=== PATIENT | female | born 1965 | race Hispanic/Latino ===

== ENCOUNTER 2017-08-14 17:31 | Inpatient (IN) | payer SELFPAY ==
[~2017-08-14] VITALS: Ht 160 cm; Wt 93.0 kg
[2017-08-14] MEDS ORDERED: ASPIRIN 81 MG CHEW TAB PO ONE (20:30)
[2017-08-14 20:35] LABS: BASOPHILS % 0.1 % (0.0-1.0); EOSINOPHILS # (AUTO) 0.3 (0.0-0.4); EOSINOPHILS % 1.9 % (0.0-6.0); LYMPHOCYTES # (AUTO) 1.4 (1.0-3.2); LYMPHOCYTES % 10.5 % (18.0-39.1); MEAN CORPUSCULAR HEMOGLOBIN 18.9 pg (28-32); MONOCYTES # (AUTO) 1.1 (0.2-0.8); MONOCYTES % 8.1 % (4.4-11.3); NEUTROPHILS # (AUTO) 10.7 (2.1-6.9); NEUTROPHILS % 78.4 % (38.7-80.0); PLATELET COUNT 265 x10e3/uL (140-360); RED BLOOD COUNT 2.27 x10e6/uL (3.6-5.1); RED CELL DISTRIBUTION WIDTH 18.9 % (11.7-14.4)
[2017-08-14 20:38] LABS: HEMOGLOBIN 4.3 g/dL (12.0-16.0)
[2017-08-14 20:39] LABS: HEMATOCRIT 15.9 % (34.2-44.1)
[2017-08-14 20:40] LABS: BILIRUBIN,URINE NEGATIVE (NEGATIVE); KETONES,URINE NEGATIVE (NEGATIVE); LEUKOCYTE ESTERASE ,URINE NEGATIVE (NEGATIVE); NITRITE,URINE NEGATIVE (NEGATIVE); PROTEIN,URINE DIPSTICK NEGATIVE (NEGATIVE); URINE UROBILINOGEN 0.2 mg/dL (0.2 - 1)
[2017-08-14 20:41] LABS: CLARITY,URINE CLEAR (CLEAR); COLOR,URINE YELLOW (YELLOW); INR 1.09; PROTHROMBIN TIME 13.3 seconds (11.9-14.5)
[2017-08-14 20:42] LABS: PARTIAL THROMBOPLASTIN TIME 26.5 seconds (23.8-35.5)
[2017-08-14] MEDS ORDERED: SODIUM CHLORIDE 0.9% 1000ML 1,000 ML IV STA (20:47)
[2017-08-14] MEDS ORDERED: PANTOPRAZOLE 40 MG 10ML VIAL IV STA (20:47)
[2017-08-14 20:53] LABS: EPITHELIAL CELLS,URINE FEW /LPF
[2017-08-14 20:54] LABS: ALBUMIN 3.5 g/dL (3.5-5.0); ANION GAP 13.7 mmol/L (8-16); CALCIUM 8.4 mg/dL (8.4-10.2); CREATININE, SERUM 1.06 mg/dL (0.57-1.11); POTASSIUM 3.7 mmol/L (3.5-5.1); WBC,URINE (MAN) 0-5 /HPF (0-5)
--- NOTE | 2017-08-14 20:59 | Diagnostic Imaging Report ---
EXAMINATION: Head CT without contrast. HISTORY:Dizziness. COMPARISON:None. TECHNIQUE: Multidetector axial images were obtained from the foramen magnum to the vertex without contrast. The images were reconstructed using brain and bone algorithms. Thin section brain images were reformatted into coronal and sagittal planes. Intravenous contrast: None IMAGE QUALITY: Acceptable. FINDINGS: Skull/scalp: No abnormality. Parenchyma: No abnormal density. No acute hemorrhage, mass or acute major vascular territorial infarct. Arteries: No density suggestive of thrombosis. Dural sinuses: No abnormal density suggestive of thrombosis. Ventricles: No hydrocephalus or displacement. Extra-axial spaces: No abnormal density. Brain volume: Normal for age. Craniocervical junction: No mass, Chiari malformation, or basilar invagination. Sella: No abnormality. Paranasal/mastoid sinuses: Mild mucosal thickening in right maxillary sinus. IMPRESSION: No intracranial abnormality. Signed by: Dr. Jessica Flores M.D. on 08/14/2017 8:56 PM
[2017-08-14] MEDS ORDERED: SODIUM CHLORIDE 0.9% 250ML 250 ML IV ONE (21:00)
[2017-08-14 21:02] LABS: CREATINE KINASE MB 0.5 ng/mL (0-5.0)
--- NOTE | 2017-08-14 21:17 | Diagnostic Imaging Report ---
EXAMINATION: CHEST SINGLE (PORTABLE) INDICATION: \S\CHEST PAIN \S\[id number] \S\2024 \S\Y COMPARISON: None FINDINGS: AP view TUBES and LINES: None. LUNGS: Lungs are well inflated. Central pulmonary venous congestion. There is no evidence of pneumonia or kacie pulmonary edema. PLEURA: No pleural effusion or pneumothorax. HEART AND MEDIASTINUM: The cardiac silhouette is enlarged. BONES AND SOFT TISSUES: No acute osseous lesion. Soft tissues are unremarkable. UPPER ABDOMEN: No free air under the diaphragm. IMPRESSION: Cardiomegaly with central pulmonary venous congestion. Signed by: DR. Rolo Sanchez MD on 08/14/2017 9:13 PM
[2017-08-14] MEDS ORDERED: NITROGLYCERIN 0.4 MG SUBL SL PRN (22:30)
--- OUTSIDE RECORDS SUMMARY | 2017-08-14 22:41 | XMS REPORT ---
Author Author [facility] Address Unknown Phone Unavailable Care Team Providers Care Stave Jointer Name Role Phone DAVE ALFONSO Unavailable Unavailable Problems This patient has no known problems. Allergies, Adverse Reactions, Alerts This patient has no known allergies or adverse reactions. Medications This patient has no known medications. Results Test Description Test Time Test Comments Text Results Atomic Results Result Comments CT BRAIN WO [place] [address] Patient Name: YVONNE SPENCER MR #: [id number] : 1965 Age/Sex: 52/F Req #: [id number] Adm Physician: Ordered by: DAVE ALFONSO MD Report #: [id number] Location: ER Room/Bed: Procedure: [id number] CT/CT BRAIN WO Exam Date: 08/14/17 Exam Time: 2033 REPORT STATUS: Signed EXAMINATION: Head CT without contrast. HISTORY:Dizziness. COMPARISON:None. TECHNIQUE: Multidetector axial images were obtained from the foramen magnum to the vertex without contrast. The images were reconstructed using brain and bone algorithms. Thin section brain images were reformatted into coronal and sagittal planes. Intravenous contrast: None IMAGE QUALITY: Acceptable. FINDINGS: Skull/scalp: No abnormality. Parenchyma: No abnormal density. No acute hemorrhage, mass or acute major vascular territorial infarct. Arteries: No density suggestive of thrombosis. Dural sinuses: No abnormal density suggestive of thrombosis. Ventricles: No hydrocephalus or displacement. Extra-axial spaces: No abnormal density. Brain volume: Normal for age. Craniocervical junction: No mass, Chiari malformation, or basilar invagination. Sella: No abnormality. Paranasal/mastoid sinuses: Mild mucosal thickening in right maxillary sinus. IMPRESSION: No intracranial abnormality. Signed by: Dr. Jessica Flores M.D. on 08/14/2017 8:56 PM Dictated By: JESSICA FLORES MD 55 Transcribed By: PAPO on 08/14/172055 COPY TO: DAVE ALFONSO MD CHEST SINGLE (PORTABLE) [place] [address] Patient Name: YVONNE SPENCER MR #: [id number] : 1965 Age/Sex: 52/F Req #: [id number] Adm Physician: Ordered by: DAVE ALFONSO MD Report #: [id number] Location: ER Room/Bed: Procedure: [id number] DX/CHEST SINGLE (PORTABLE) Exam Date: 08/14/17 Exam Time: 2024 REPORT STATUS: Signed EXAMINATION: CHEST SINGLE ( PORTABLE) INDICATION: COMPARISON: None FINDINGS: AP view TUBES and LINES: None. LUNGS: Lungs are well inflated. Central pulmonary venous congestion. There is no evidence of pneumonia or kacie pulmonary edema. PLEURA: No pleural effusion or pneumothorax. HEART AND MEDIASTINUM: The cardiac silhouette is enlarged. BONES AND SOFT TISSUES: No acute osseous lesion. Soft tissues are unremarkable. UPPER ABDOMEN: No free air under the diaphragm. IMPRESSION: Cardiomegaly with central pulmonary venous congestion. Signed by: DR. Rolo Black MD on 08/14/2017 9:13 PM Dictated By: ROLO BLACK MD 12 Transcribed By: PAPO on 08/14/172112 COPY TO: DAVE ALFONSO MD
--- NOTE | 2017-08-14 23:53 | Diagnostic Imaging Report ---
EXAM: Transabdominal and Transvaginal Pelvic Ultrasound INDICATION: Vaginal bleeding COMPARISON: None TECHNIQUE: Grayscale transverse and sagittal transabdominal and transvaginal images were obtained of the pelvis. Transvaginal imaging was medically necessary to better evaluate the endometrium and the adnexa. CLINICAL HISTORY: 52 year old A2; last menstrual period: 04/07/2017, continues bleeding. FINDINGS: Uterus Orientation: Normal Size: 11.9 x 9.4 x 10.9 cm, Normal Mass: Few myometrial fibroids, the largest on the left body measuring 8.1 x 8.9 x 6.4 cm. Cervix: Normal Endometrium: Thickness: ... cm, Normal. Appearance: Homogeneous echotexture without focal thickening. Right ovary: Not visualized Left ovary: Size: 4.2 x 2.5 x 2.6 cm Mass/Cyst: Left ovarian cystic lesion/simple cyst measuring 2.5 x 2.1 x 2.2 cm Adnexa: Normal Cul-de-sac: No free fluid IMPRESSION: 1. Large left hyperechoic fibroid. Differential diagnosis may include a lipoleiomyoma. MRI of the pelvis with and without contrast is recommended for evaluation of the submucosal component of the fibroid. 2. Right ovary is not visualized. Signed by: Dr. Jarrett Bhakta M.D. on 08/14/2017 11:49 PM
[2017-08-14] MEDS: ACETAMINOPHEN 325 MG TAB PO PRN (23:56)
[2017-08-15] VITALS (11 sets, daily range): BP systolic 122–159; BP diastolic 57–86
[2017-08-15] MEDS ORDERED: SODIUM CHLORIDE 0.9% 250ML 250 ML ONE ×3 (03:23→16:06)
[2017-08-15] MEDS: FAMOTIDINE 20 MG/2 ML VIAL IV SCH ×3 (04:15→21:11)
[2017-08-15] MEDS ORDERED: ZOLPIDEM TARTRATE 5 MG TAB PO PRN (04:15)
[2017-08-15] MEDS ORDERED: LASIX40 MG PO (09:52)
[2017-08-15] MEDS ORDERED: XANAX2 MG PO (09:55)
[2017-08-15] MEDS ORDERED: ATENOLOL50 MG PO (09:55)
[2017-08-15] MEDS ORDERED: ALPRAZOLAM 0.25 MG TAB PO PRN (10:45)
--- NOTE | 2017-08-15 11:08 | History and Physical ---
CHIEF COMPLAINT: Profuse vaginal bleeding. HPI: Ms. Colvin is a 52-year-old female who has been having vaginal bleeding for 4 months. She has not sought any medical attention. She has a history of hypertension. She denies any complaints of chest pain, shortness of breath now. When she came in, she was having chest pain. Her hemoglobin in the emergency room was 4.3. She denies any nausea or vomiting. She was having shortness of breath and chest discomfort, which is better. She received 2 units of blood while she has been here. REVIEW OF SYSTEMS: Negative except as in HPI. PAST MEDICAL HISTORY: Hypertension. PAST SURGICAL HISTORY: . FAMILY AND SOCIAL HISTORY: She lives with her . She is self-employed. She cleans houses and sells roses. PHYSICAL EXAMINATION VITAL SIGNS: Temperature 97.9, pulse 67, blood pressure 152/73, respiratory rate 18, and O2 sat 96% on room air. SKIN: Warm and dry. CHEST: Clear to auscultation bilaterally. No wheezing. HEART: S1 and S2 audible. ABDOMEN: Soft and nontender. EXTREMITIES: No clubbing, cyanosis or edema. NEUROLOGIC: Awake and alert. LABS: White count of 13,000, hemoglobin 4.3 and platelets 265,000. Chemistry is within normal limits. Troponins are normal. She had a chest x-ray which is showing cardiomegaly, mild congestion. Head CT was done, which is normal. She had a transvaginal ultrasound that is showing large left hyperechoic fibroid and may be lipoleiomyoma. ASSESSMENT AND PLAN: Ms. Colvin is a 52-year-old female. She presented with severe acute blood loss anemia secondary to profuse menorrhagia resulting in chest discomfort and shortness of breath, which is better now. PLAN: Transfuse blood. WOOD HEEL FLAP TRIMMER consult. The patient has fibroid or leiomyoma. The patient is a smoker. Will order a nicotine patch. Start the patient on antihypertensive medication. Discussed with the at bedside. Job#: [id number] JORDYN
[2017-08-15] MEDS: MORPHINE SULFATE 2 MG/ML SYR IV PRN ×2 (11:16→21:12)
[2017-08-15] MEDS: ONDANSETRON HCL INJ 2 MG/ML VIAL IV PRN ×2 (11:16→21:12)
[2017-08-15] MEDS: FUROSEMIDE INJ 10 MG/ML 2 ML VIAL IV PRN ×2 (13:58→20:08)
--- NOTE | 2017-08-15 19:02 | Consultation ---
DATE OF CONSULTATION: August 15, 2017 She is a 53-year-old 2, para 1 with a previous who came in to the hospital complaining of fatigue, tiredness, irregular heart beats. She has been having abnormal uterine bleeding since March. She has almost been bleeding continuously with large clots. She is known to have anemia and she has been taking iron tablets on and off. PAST MEDICAL HISTORY: Nothing of significance apart from high blood pressure. PAST SURGICAL HISTORY: She had section. MEDICATIONS: She is on iron. ALLERGIES: NO KNOWN DRUG ALLERGIES. SOCIAL HISTORY: Denied smoking, alcohol or drug abuse. PHYSICAL EXAMINATION VITAL SIGNS: Stable. CHEST: Clear to auscultation. CARDIOVASCULAR: Regular rate. ABDOMEN: Soft and nontender. ASSESSMENT AND PLAN: A 52-year-old with menometrorrhagia, anemia and fibroid uterus. The patient is not having any vaginal bleeding right now. She is getting blood transfusion for very low hemoglobin. Once her hemoglobin improves, she can go home and come to the office as an outpatient for followup. All her questions were answered. She probably is going to need to have a hysterectomy in the future due to the fibroid. Once again, thank you very much for asking me to see this patient. Please do not hesitate to call me back in view of any further help in the future. Job#: [id number] GH cc:DOROTEO KENT M.D.
[2017-08-15] MEDS: ACETAMINOPHEN 325 MG TAB PO PRN (21:12)
[2017-08-15 22:34] LABS: HEMATOCRIT 25.6 % (34.2-44.1)
[2017-08-15 22:55] LABS: CREATINE KINASE MB 0.5 ng/mL (0-5.0)
[2017-08-16 00:16] VITALS: BP 146/80
[2017-08-16 04:50] VITALS: BP 153/74
[2017-08-16] MEDS: MORPHINE SULFATE 2 MG/ML SYR IV PRN (04:56)
[2017-08-16 06:33] LABS: BASOPHILS # (AUTO) 0.1 (0.0-0.1); BASOPHILS % 0.5 % (0.0-1.0); EOSINOPHILS # (AUTO) 0.4 (0.0-0.4); EOSINOPHILS % 3.7 % (0.0-6.0); HEMATOCRIT 25.5 % (34.2-44.1); LYMPHOCYTES # (AUTO) 1.1 (1.0-3.2); LYMPHOCYTES % 11.9 % (18.0-39.1); MEAN CORPUSCULAR HEMOGLOBIN 23.5 pg (28-32); MEAN CORPUSCULAR HGB CONC 31.4 g/dL (31-35); MONOCYTES # (AUTO) 0.7 (0.2-0.8); MONOCYTES % 7.9 % (4.4-11.3); NEUTROPHILS % 75.1 % (38.7-80.0); PLATELET COUNT 197 x10e3/uL (140-360)
[2017-08-16 06:55] LABS: ALANINE AMINOTRANSFERASE 7 IU/L (0-55); ALBUMIN 3.4 g/dL (3.5-5.0); ALBUMIN/GLOBULIN RATIO 0.9 (0.8-2.0); ALKALINE PHOSPHATASE 44 IU/L (40-150); ANION GAP 14.8 mmol/L (8-16); BLOOD UREA NITROGEN 16 mg/dL (7-26); BUN/CREATININE RATIO 19 (6-25); CALCIUM 8.6 mg/dL (8.4-10.2); CARBON DIOXIDE 22 mmol/L (22-29); CHLORIDE 107 mmol/L (98-107); CHOL/HDL RATIO 5.4 (3.0-3.6); CHOLESTEROL 130 MD/DL (0-199); CREATININE, SERUM 0.85 mg/dL (0.57-1.11); EST GLOMERULAR FILTRATION RATE > 60 ML/MIN (60-); GLUCOSE 96 mg/dL (74-118); HDL CHOLESTEROL 24 MG/DL (40-60); LDL CHOLESTEROL 68 MG/DL (60-130); POTASSIUM 3.8 mmol/L (3.5-5.1); SODIUM 140 mmol/L (136-145); TRIGLYCERIDES 190 MG/DL (0-149)
[2017-08-16 08:21] LABS: EOSINOPHILS % (MANUAL) 3 % (0-7); HOWELL-JOLLY BODIES FEW; HYPOCHROMASIA MODERATE; LYMPHOCYTES % (MANUAL) 11 % (19-48); MONOCYTES % (MANUAL) 6 % (3.4-9.0); NEUTROPHILS % (MANUAL) 80 % (40-74); PLATELET ESTIMATE ADEQUATE; PLATELET MORPHOLOGY COMMENT FEW GIANT
[2017-08-16 08:22] LABS: ANISOCYTOSIS SLIGHT; POIKILOCYTOSIS SLIGHT; RBC MORPHOLOGY COMMENT NORMAL
[2017-08-16 08:23] VITALS: BP 132/76
[2017-08-16] MEDS ORDERED: LABETALOL HCL 100 MG TAB PO SCH (09:00)
[2017-08-16] MEDS ORDERED: NICOTINE 14 MG/EA PATCH TOP SCH (09:00)
[2017-08-16] MEDS: FAMOTIDINE 20 MG/2 ML VIAL IV SCH (11:30)
--- NOTE | 2017-11-26 16:08 | Discharge Summary ---
FINAL DIAGNOSES 1. Acute blood loss anemia. 2. Fibroid uterus and leiomyoma. 3. Smoker. 4. Hypertension. ADMISSION HISTORY AND HOSPITAL COURSE: Ms. Colvin is a 52-year-old female who presented initially with the complaints of diffuse vaginal bleeding. The patient was short of breath and hemoglobin was 4.3. She received multiple transfusions. The patient's chest x-ray also showed cardiomegaly and congestion and was in high output failure, which resolved with transfusion. She had a transvaginal ultrasound that showed enlarged left hypoechoic fibroid. PASTER OPERATOR consultation was done. Dr. Riggs saw the patient, and he recommended outpatient followup with him for possible hysterectomy. The patient underwent echocardiogram in the hospital which showed LVH with normal EF with left atrium dilated. She will be discharged home to follow up with AUTOMOBILE TAILLIGHT ASSEMBLER. The family also requested second opinion, which was declined by Dr. Mario. This was explained in detail to the family. DOROTEO KENT MD Job#: [id number]
== END 2017-08-16 13:01 | disposition home or self-care (01) | DRG 812 ==
LOC: ER 17:31 → ERHOLD 22:38 → IMCU 08-15 00:06
PROVIDERS: ADMIT Internal Medicine; ATTEND Internal Medicine
PROC: 30233N1 Transfusion of Nonautologous Red Blood Cells into Peripheral Vein, Percutaneous Approach (ICD-10-PCS; principal; 2017-08-14)
DX: D62 Acute posthemorrhagic anemia (principal); I10 Essential (primary) hypertension; D25.9 Leiomyoma of uterus, unspecified; N92.0 Excessive and frequent menstruation with regular cycle; N92.1 Excessive and frequent menstruation with irregular cycle; F17.210 Nicotine dependence, cigarettes, uncomplicated
CPT/HCPCS: 36415; 36430; 70450; 71045; 76830; 76856; 80053; 80061; 81001; 82550; 82553; 82948; 83735; 83880; 84443; 84484; 84702; 85014; 85018; 85025; 85610; 85730; 86850; 86900; 86920; 87086; 93005; 93306; 99284; J1940; J2270; J2405; J7030; J7050; P9016

== ENCOUNTER 2018-09-22 12:17 | Emergency (ER) | payer OTHER ==
[~2018-09-22] VITALS: Ht 160 cm; Wt 93.0 kg
[~2018-09-22 12:17] MED LIST: ATENOLOL50 MG PO; LASIX40 MG PO; XANAX2 MG PO
[2018-09-22 13:14] LABS: BASOPHILS # (AUTO) 0.1 (0.0-0.1); BASOPHILS % 0.6 % (0.0-1.0); EOSINOPHILS # (AUTO) 0.3 (0.0-0.4); EOSINOPHILS % 2.6 % (0.0-6.0); HEMATOCRIT 36.7 % (34.2-44.1); LYMPHOCYTES # (AUTO) 1.1 (1.0-3.2); LYMPHOCYTES % 11.7 % (18.0-39.1); MEAN CORPUSCULAR HEMOGLOBIN 23.3 pg (28-32); MEAN CORPUSCULAR VOLUME 77.8 fL (81-99); MONOCYTES # (AUTO) 0.6 (0.2-0.8); MONOCYTES % 6.6 % (4.4-11.3); NEUTROPHILS # (AUTO) 7.4 (2.1-6.9); NEUTROPHILS % 78.1 % (38.7-80.0); PLATELET COUNT 227 x10e3/uL (140-360); RED BLOOD COUNT 4.72 x10e6/uL (3.6-5.1); RED CELL DISTRIBUTION WIDTH 17.1 % (11.7-14.4)
--- NOTE | 2018-09-22 14:25 | NUR ---
ASSISTED ROBOTIC MACHINE TENDER PRODUCTION RAJAN WITH PELVIC EXAM IN ER ROOM 8
[2018-09-22] MEDS ORDERED: HYDROCODONE/APAP 10MG-325MG TAB PO ONE (16:00)
== END 2018-09-22 16:16 | disposition home or self-care (01) ==
LOC: ER 12:17
DX: N93.9 Abnormal uterine and vaginal bleeding, unspecified (principal); R10.2 Pelvic and perineal pain; D25.9 Leiomyoma of uterus, unspecified; F17.210 Nicotine dependence, cigarettes, uncomplicated
CPT/HCPCS: 36415; 84702; 85025; 99284

== ENCOUNTER 2022-02-09 14:06 | Emergency (ER) | payer SELFPAY ==
[~2022-02-09] VITALS: Ht 160 cm; Wt 93.0 kg
[2022-02-09] MEDS ORDERED: HYDROCODONE/APAP 5MG-325MG TAB PO ONE (17:45)
[2022-02-09] MEDS ORDERED: INDOCIN50 MG PO (19:26)
[2022-02-09 19:57] VITALS: BP 147/78
== END 2022-02-09 19:58 | disposition home or self-care (01) ==
LOC: ER 15:34
DX: M79.672 Pain in left foot (principal); M79.671 Pain in right foot; D64.9 Anemia, unspecified
CPT/HCPCS: 93925; 93970; 99283